=== PATIENT | male | born 1960 | race Caucasian/White ===

== ENCOUNTER 2022-10-21 18:16 | Emergency (ER) | payer MEDICARE, SELFPAY ==
--- NOTE | ~2022-10-21 | XR_ITS ---
EXAM: XR knee RT min 4V DATE: 10/21/2022 19:25 HISTORY: fall, BRUISING AND SWELLING FOR 4 DAYS . COMPARISON: None available. FINDINGS: Normal mineralization. No fracture or dislocation. No lytic or blastic lesion. Mild tricom partmental osteoarthritis. Trace joint effusion. No erosion or periosteal change. Soft tissue swellin g anterior to the patella. IMPRESSION: No acute osseous finding in the right knee. Reviewed, dictated and finalized at location K. MASTER
[2022-10-21 18:20] VITALS: BP 150/78; PULSE 100; RESP 16; TEMP 37.3; O2SAT 100
--- NOTE | 2022-10-21 20:00 | ED.LOWEXIN ---
HPI - Extremity Injury (Lower) General Chief Complaint: Extremity Injury, Lower Stated Complaint: right knee injury Time Seen by Provider: 10/21/22 19:43 History of Present Illness HPI Narrative: 62-year-old male reports for right knee pain for 2 days. Patient states 4 days ago he got tangled up in his catheter cords, causing him to fall out of his bed and hitting his right knee on his metal bed frame. States he was not experiencing any pain until 2 days after the fall. He is now complaining of swollen, painful right knee. Denies fever, body aches, chills. Reports he is able to ambulate, however it is increasingly difficult. Reports difficulty with knee extension. Patient states his last tetanus shot was greater than 5 years ago. He denies history of diabetes or septic joint. Related Data Allergies Allergy/AdvReac Type Severity Reaction Status Date / Time No Known Allergies Allergy Unverified 03/12/19 12:54 Review of Systems Review of Systems: CONSTITUTIONAL: Denies fever, chills EYES: Denies visual changes, redness, or discharge. ENT: Denies rhinorrhea, congestion, sore throat, or otalgia. CARDIOVASCULAR: Denies chest pain, palpitations, or edema. RESPIRATORY: Denies cough or dyspnea. GASTROINTESTINAL: Denies abdominal pain, nausea, vomiting, or diarrhea. GENITOURINARY: Denies dysuria or hematuria. SKIN: Denies rash or itching. MUSCULOSKELETAL: See HPI NEUROLOGIC: Denies headache, numbness, dizziness, or weakness. PSYCHIATRIC: Denies anxiety or depression. Exam Narrative: GENERAL: Well-appearing, well-nourished, and in no acute distress. HEAD: Normocephalic, atraumatic. EYES: PERRLA and EOMI. ENT: Nares clear, no rhinorrhea or epistaxis. Mucous membranes moist. NECK: Supple. No adenopathy or masses. CHEST: Clear to auscultation. No respiratory distress. No wheezes rales or rhonchi HEART: Regular rate and rhythm. No murmur heard. Normal peripheral pulses. ABDOMEN: Soft, nontender, nondistended, normal active bowel sounds. EXTREMITIES: Right knee with area of erythema and warmth overlying the patellar bursa with well healed scab. Tenderness with palpation overlying R patellar bursa. Full flexion. Limited extension. No ballottement. DP pulses 2+. Sensation intact. SKIN: See extremities. NEURO: No focal deficits. Alert and oriented x3. PSYCH: Normal mood and affect. Course Vital Signs Vital signs: Vital Signs Temperature 99.1 F 10/21/22 18:20 Pulse Rate 100 10/21/22 18:20 Respiratory Rate 16 10/21/22 18:20 Blood Pressure 150/78 H 10/21/22 18:20 Pulse Oximetry 100 10/21/22 18:20 Oxygen Delivery Room Air 10/21/22 18:20 Temperature 99.1 F 10/21/22 18:20 Pulse Rate 100 10/21/22 18:20 Respiratory Rate 16 10/21/22 18:20 Blood Pressure 150/78 H 10/21/22 18:20 Pulse Oximetry 100 10/21/22 18:20 Oxygen Delivery Room Air 10/21/22 18:20 MDM - Extremity Injury (Lower) MDM Narrative Medical decision making narrative: 62 y/o M reports for R knee erythema and pain after he fell out of his bed 4 days ago, landing on his R knee. Exam reveals an area of erythema, tenderness and well healed scab overlying the R patellar bursa, and limited knee extension. Pt afebrile, no body aches or chills. Xray reveals no acute osseous abnormality, mild tricompartmental OA, and trace joint effusion. Tetanus updated today. Will send patient home with ABX to cover for septic bursitis vs. cellulitis. Advised patient to RICE and take Tylenol for pain. Advised patient to follow up with PCP in the next 3 days for reevaluation. ED return precautions provided. Pt agrees to the plan and verbalized understanding. He remains afebrile and vitals stable throughout ED visit. Dr. Davidson personally evaluated the patient and agrees to the plan. Medical Records Attestation: I reviewed the patient's medical records. Imaging Data Attestation: I personally reviewed and interpreted this imaging study as follows: Radiologist's
[2022-10-21] MEDS: TETANUS,DIPHTHERIA,AC PERTUSSIS ADULT (0.5 ML) BOOSTRIX IM (20:17)
[2022-10-21 20:51] VITALS: BP 147/75; PULSE 71; RESP 16; O2SAT 98
== END 2022-10-21 20:53 | disposition home or self-care (01) ==
PROVIDERS: Emergency Provider Physician Assistant; PCP Family Medicine
DX: L03.115 Cellulitis of right lower limb (principal); Z23 Encounter for immunization
CPT/HCPCS: 73564; 90471; 90715; 99283

== ENCOUNTER 2022-12-17 11:55 | Outpatient (CLI) | payer MEDICARE, SELFPAY ==
[2022-12-17 20:06] LABS: Alanine Aminotransferase 26 U/L (6-50); Albumin Level 4.3 g/dL (3.5-5.1); Alkaline Phosphatase 75 U/L (38-126); Anion Gap 7 mmol/L (8-16); Aspartate Amino Transferase 32 U/L (17-59); Bilirubin,Total 0.7 mg/dL (0.2-1.3); Blood Urea Nitrogen 14 mg/dL (9-20); Carbon Dioxide 29 mmol/L (22-30); Chloride 102 mmol/L (98-107); Cholesterol 218 mg/dL (0-200); Estimated Glomerular Filt Rate > 60; Glucose 94 mg/dL (65-110); HDL Direct 36 mg/dL; Potassium 4.5 mmol/L (3.4-5.0); Sodium 138 mmol/L (137-145); Triglycerides 212 mg/dL (<150)
[2022-12-17 20:18] LABS: LDL Cholesterol Direct 146 mg/dL
[2022-12-17 20:35] LABS: Basophils Percent Auto 0.3 % (0.2-1.2); Eosinophils Absolute Auto 0.1 K/mm3 (0-0.3); Eosinophils Percent Auto 1.7 % (0-4.4); Immature Granulocyte Absolute 0.01 K/mm3 (0.00-0.031); Immature Granulocyte Percent A 0.2 % (0-0.5); Lymphocytes Absolute Auto 1.74 K/mm3 (0.9-3.2); Lymphocytes Percent Auto 29.4 % (18.3-44.2); Mean Corpuscular HGB Conc 32.6 g/dl (32-36); Mean Corpuscular Hemoglobin 29.2 pg (26-34); Mean Corpuscular Volume 89.6 fl (80-100); Mean Platelet Volume 9.5 fl (7.4-10.4); Monocytes Absolute Auto 0.3 K/mm3 (0.1-0.6); Monocytes Percent Auto 5.2 % (2.6-8.5); Neutrophils Absolute Auto 3.7 K/mm3 (1.3-6.7); Neutrophils Percent Auto 63.2 % (45.5-73.1); Platelet Count Result 263 k/mm3 (150-375); Red Cell Distribution Width 13.6 % (11.5-14.5); White Blood Count 5.9 K/mm3 (4.5-10.0)
== END 2022-12-17 11:56 | disposition home or self-care (01) ==
LOC: ANHGOSHLAB 11:57
PROVIDERS: PCP Internal Medicine; Visit Provider Clinical Nurse Specialist
DX: I10 Essential (primary) hypertension (principal); Z13.220 Encounter for screening for lipoid disorders
CPT/HCPCS: 36415; 80053; 80061; 85025

== ENCOUNTER 2023-07-08 16:53 | Emergency (ER) | payer MEDICARE, MEDICAID, SELFPAY ==
--- NOTE | ~2023-07-08 | XR_ITS ---
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 RESULT: Lines, tubes, and devices: None. Lungs and pleura: Clear. Cardiomediastinal silhouette: Stable. Other: No acute osseous or upper abdominal finding. IMPRESSION: No acute cardiopulmonary process. Reviewed, dictated and finalized at location K. TRICAL ACCESSORIES ASSEMBLER
--- NOTE | 2023-07-08 16:54 | ECG_ITS ---
Measurements Intervals [place] Rate: 128 P: 61 NC: 157 QRS: 30 QRSD: 94 T: 43 QT: 292 QTc: 427 Interpretive Statements SINUS TACHYCARDIA ABNORMAL ECG NO PREVIOUS ECG AVAILABLE FOR COMPARISON Electronically Signed On 07-08-2023 18:41:59 LOADER OPERATOR by Elian Luis D.O.
[2023-07-08 16:55] VITALS: BP 115/89; PULSE 129; RESP 24; TEMP 36.7; O2SAT 99
--- NOTE | 2023-07-08 17:07 | ED.GENADULT ---
HPI - General Adult General Chief complaint: Shortness of Breath/Dyspnea Stated complaint: SOB History of Present Illness HPI narrative: Jim Boyle is a 63 y/o male who presents with reports of worsening SOB that seems to be worse at bedtime. He reports that he was evaluated for this before and was told he has asthma. He reports productive cough/ no fevers/chills/ but doesn't feel like he can catch his breath and he starts to get chest pain when he tries to take deep breaths. Related Data Home Medications Medication Instructions Recorded Confirmed atenolol 50 mg tablet 50 mg PO DAILY 12/17/22 12/17/22 cyclobenzaprine 10 mg tablet 10 mg PO TID 12/17/22 12/17/22 fenofibrate 160 mg tablet 160 mg PO DAILY 12/17/22 12/17/22 hydrocodone 10 mg-acetaminophen 1 tablet PO QHS PRN 12/17/22 12/17/22 325 mg tablet lisinopril 10 1 tablet PO DAILY 12/17/22 12/17/22 mg-hydrochlorothiazide 12.5 mg tablet sildenafil (pulm.hypertension) 20 20 mg PO TID 12/17/22 12/17/22 mg tablet Allergies Allergy/AdvReac Type Severity Reaction Status Date / Time niacin Allergy Mild Muscle Pain Verified 12/17/22 10:59 [From [facility] Extended-Release] [facility] Past Medical History Medical History (Updated 07/09/23 @ 19:10 by Zoe Reeves, MANAGER [employer]) Prostate cancer Social History Social History Smoking status: Never smoker Alcohol intake: never Substance use: never Lack of Transportation: No Lack of Food: Never True Current Housing: I Have Housing Concerned About Future Housing: No Difficulty Paying Gas/Electric Bills: No Difficulty Paying for Meds: No Currently Unemployed: No Education: High School Diploma/GED Difficulty w/ Childcare or Family Care: No Course Vital Signs Vital signs: Vital Signs Temperature 36.7 C 07/08/23 16:55 Pulse Rate 129 H 07/08/23 16:55 Respiratory Rate 24 H 07/08/23 16:55 Blood Pressure 115/89 07/08/23 16:55 Pulse Oximetry 99 07/08/23 16:55 Oxygen Delivery Room Air 07/08/23 16:55 Temperature 36.7 C 07/08/23 16:55 Pulse Rate 129 H 07/08/23 16:55 Respiratory Rate 24 H 07/08/23 16:55 Blood Pressure 115/89 07/08/23 16:55 Pulse Oximetry 99 07/08/23 16:55 Oxygen Delivery Room Air 07/08/23 16:55 Medical Decision Making Vital Signs Vital Signs: Vital Signs Temperature 36.7 C 07/08/23 16:55 Pulse Rate 129 H 07/08/23 16:55 Respiratory Rate 24 H 07/08/23 16:55 Blood Pressure 115/89 07/08/23 16:55 Pulse Oximetry 99 07/08/23 16:55 Oxygen Delivery Room Air 07/08/23 16:55 Temperature 36.7 C 07/08/23 16:55 Pulse Rate 129 H 07/08/23 16:55 Respiratory Rate 24 H 07/08/23 16:55 Blood Pressure 115/89 07/08/23 16:55 Pulse Oximetry 99 07/08/23 16:55 Oxygen Delivery Room Air 07/08/23 16:55 Lab Data 07/08/23 17:11 07/08/23 17:11 Labs: Lab Results 07/08/23 07/08/23 07/08/23 Range/Units 17:11 17:11 17:11 WBC 7.4 (4.5-10.0) K/mm3 RBC 5.71 (4.6-6.20) M/mm3 Hgb 16.7 (14.0-18.0) g/dL Hct 51.5 (42.0-52.0) % MCV 90.2 (80-100) fl MCH 29.2 (26-34) pg MCHC 32.4 (32-36) g/dl RDW 13.3 (11.5-14.5) % Plt Count 297 (150-375) k/mm3 MPV 8.9 (7.4-10.4) fl Immature Gran % (Auto) 0.1 (0-0.5) % Neut % (Auto) 66.2 (45.5-73.1) % Lymph % (Auto) 26.2 (18.3-44.2) % Lassen % (Auto) 4.6 (2.6-8.5) % Eos % (Auto) 2.2 (0-4.4) % Baso % (Auto) 0.7 (0.2-1.2) % Lymph # (Auto) 1.93 (0.9-3.2) K/mm3 Lassen # (Auto) 0.3 (0.1-0.6) K/mm3 Eos # (Auto) 0.2 (0-0.3) K/mm3 Baso # (Auto) 0.1 (0.0-0.1) K/mm3 Abs Immat Gran (auto) 0.01 (0.00-0.031) K/mm3 Absolute Neuts (auto) 4.9 (1.3-6.7) K/mm3 Absolute Nucleated RBC 0.0 (0.0-0.012) K/mm3 Nucleated RBC % 0.0 (0.0-0.2) % Sodium Cancelled 138 Potassium Cancelled 4.0 Chlorid
[2023-07-08 17:16] LABS: Basophils Absolute Auto 0.1 K/mm3 (0.0-0.1); Basophils Percent Auto 0.7 % (0.2-1.2); Eosinophils Absolute Auto 0.2 K/mm3 (0-0.3); Eosinophils Percent Auto 2.2 % (0-4.4); Hematocrit 51.5 % (42.0-52.0); Hemoglobin 16.7 g/dL (14.0-18.0); Immature Granulocyte Absolute 0.01 K/mm3 (0.00-0.031); Immature Granulocyte Percent A 0.1 % (0-0.5); Lymphocytes Absolute Auto 1.93 K/mm3 (0.9-3.2); Lymphocytes Percent Auto 26.2 % (18.3-44.2); Mean Corpuscular HGB Conc 32.4 g/dl (32-36); Mean Corpuscular Hemoglobin 29.2 pg (26-34); Mean Corpuscular Volume 90.2 fl (80-100); Mean Platelet Volume 8.9 fl (7.4-10.4); Monocytes Absolute Auto 0.3 K/mm3 (0.1-0.6); Monocytes Percent Auto 4.6 % (2.6-8.5); Neutrophils Absolute Auto 4.9 K/mm3 (1.3-6.7); Neutrophils Percent Auto 66.2 % (45.5-73.1); Platelet Count Result 297 k/mm3 (150-375); Red Blood Count 5.71 M/mm3 (4.6-6.20); Red Cell Distribution Width 13.3 % (11.5-14.5); White Blood Count 7.4 K/mm3 (4.5-10.0)
[2023-07-08 17:26] LABS: Alanine Aminotransferase 27 U/L (6-50); Albumin Level 4.8 g/dL (3.5-5.1); Alkaline Phosphatase 76 U/L (38-126); Anion Gap 13 mmol/L (8-16); Aspartate Amino Transferase 23 U/L (17-59); Bilirubin,Total 0.6 mg/dL (0.2-1.3); Blood Urea Nitrogen 20 mg/dL (9-20); Calcium 9.6 mg/dL (8.4-10.2); Carbon Dioxide 26 mmol/L (22-30); Chloride 99 mmol/L (98-107); Estimated CRCL calculation 53 ml/min; Estimated Glomerular Filt Rate 48; Glucose 117 mg/dL (65-110); Sodium 138 mmol/L (137-145)
[2023-07-08 17:38] LABS: Troponin I < 0.012 ng/mL (0.000-0.034)
--- NOTE | 2023-07-08 22:38 | PC.NURSE ---
Pts name was called 3 times to be taken back to a room and no one showed up.
== END 2023-07-08 23:30 | disposition left against medical advice (07) ==
PROVIDERS: Emergency Medicine; Emergency Provider Nurse Practitioner Family; PCP Internal Medicine
DX: R06.02 Shortness of breath (principal); Z85.46 Personal history of malignant neoplasm of prostate
CPT/HCPCS: 36415; 71046; 80053; 84484; 85025; 93005; 99199